=== PATIENT | female | born 1945 | race Hispanic/Latino ===

== ENCOUNTER → 2018-04-03 | Outpatient (CLI) | payer OTHER ==
[~2018-04-03] MED LIST: AMLO5TAB7 PO; ATEN50TA PO; FLUTICASONE NASAL; GLIM4TAB3 PO; INSU100I21 SQ; LEVO5TAB13 PO; LOSA1TAB54 PO; LOVA10TA2 PO; METF-446 PO; OMEP40CA37 PO
== END | disposition home or self-care (01) ==
LOC: SLP 20:19
PROVIDERS: ATTEND Internal Medicine
DX: G47.33 Obstructive sleep apnea (adult) (pediatric) (principal)
CPT/HCPCS: 95810

== ENCOUNTER → 2018-05-21 | Outpatient (CLI) | payer OTHER | END | disposition home or self-care (01) | LOC: SLP 20:39 | PROVIDERS: ATTEND Internal Medicine | DX: G47.33 Obstructive sleep apnea (adult) (pediatric) (principal) | CPT/HCPCS: 95811 ==